=== PATIENT | female | born 1970 | race Asian ===

== ENCOUNTER 2024-03-02 15:50 | Emergency (ER) | payer OTHER ==
[~2024-03-02] VITALS: Ht 157.5 cm; Wt 59.0 kg
[2024-03-02 15:56] VITALS: O2SAT 97
[2024-03-02] MEDS ORDERED: TETANUS, DIPHTHERIA, PERTUSSIS VAC/PF 0.5ML (>10YR OLD) IM ONE (16:45)
[2024-03-02 18:12] VITALS: TEMP 36.94740
[2024-03-02] MEDS: TETANUS, DIPHTHERIA, PERTUSSIS VAC/PF 0.5ML (>10YR OLD) IM ONE (18:58)
[2024-03-02 19:00] VITALS: TEMP 98.5
[2024-03-02] MEDS: ACETAMINOPHEN 325MG TABLET PO ONE (19:00)
[2024-03-02] MEDS ORDERED: LIDOCAINE HCL/PF 1% 10 MG/ML 5ML VIAL INFIL ONE (19:15)
[2024-03-02 21:09] VITALS: BP 139/90; PULSE 90; RESP 15; O2SAT 98
== END 2024-03-02 21:09 | disposition home or self-care (01) ==
LOC: ER 15:50
DX: S01.01XA Laceration without foreign body of scalp, initial encounter (principal); R51.9 Headache, unspecified; Y04.0XXA Assault by unarmed brawl or fight, initial encounter; Y93.89 Activity, other specified; Y92.89 Other specified places as the place of occurrence of the external cause; Y99.8 Other external cause status
CPT/HCPCS: 70450; 90715; 12001; 90471; 99285; J3490; Z7610 ×4